=== PATIENT | male | born 1970 | race Hispanic/Latino ===

== ENCOUNTER 2018-01-02 17:16 | Emergency (ER) | payer MEDICAID ==
[2018-01-02] MEDS ORDERED: TETANUS/DIPHTHERIA TOXOID [ADULT] 0.5 ML VIAL IM ONE (18:08)
== END 2018-01-02 18:14 | disposition home or self-care (01) ==
LOC: EDH 17:16
DX: Z23 Encounter for immunization (principal); Z72.0 Tobacco use
CPT/HCPCS: 90471; 90714

== ENCOUNTER 2018-01-15 03:34 | Emergency (ER) | payer MEDICAID | END 2018-01-15 04:01 | disposition home or self-care (01) | LOC: EDH 03:34 | DX: Z04.1 Encounter for examination and observation following transport accident (principal) ==

== ENCOUNTER 2018-11-29 14:59 | Emergency (ER) | payer MEDICAID ==
[2018-11-29 15:24] LABS: BASOPHILS % (AUTO) 0.8 % (0.0-5.0); EOSINOPHILS % (AUTO) 4.6 % (0.0-8.0); HEMATOCRIT 43.7 % (42-54); LYMPHOCYTES % (AUTO) 33.3 % (21.0-51.0); MEAN CORPUSCULAR HEMOGLOBIN 33.2 pg (27.0-33.0); MEAN CORPUSCULAR HGB CONC 34.8 g/dL (32.0-36.0); MEAN CORPUSCULAR VOLUME 95.6 fL (79-99); MONOCYTES % (AUTO) 7.2 % (3.0-13.0); NEUTROPHILS % (AUTO) 54.1 % (40.0-77.0); PLATELET COUNT (AUTO) 316 K/uL (130-400); RED BLOOD CELL COUNT(AUTO) 4.57 MIL/uL (4.50-6.20); RED CELL DISTRIBUTION WIDTH 12.8 % (11.0-15.5); WHITE BLOOD COUNT (AUTO) 5.6 K/uL (4.8-10.8)
[2018-11-29] MEDS ORDERED: SODIUM CHLORIDE 0.9% 1000ML 1,000 ML IV ONE (15:30)
[2018-11-29] MEDS ORDERED: ASPIRIN 325 MG TABLET ONE (15:30)
[2018-11-29] MEDS ORDERED: NITROGLYCERIN 1GM/1 INCH PACKET TD ONE (15:31)
[2018-11-29 15:37] LABS: POTASSIUM 3.9 mmol/L (3.5-5.1)
[2018-11-29] MEDS ORDERED: PANTOPRAZOLE 40 MG/VIAL IVP ONE (15:39)
[2018-11-29 15:42] LABS: ALBUMIN 3.7 g/dL (3.5-5.0); BILIRUBIN,TOTAL 0.6 mg/dL (0.2-1.0); TOTAL PROTEIN, SERUM 7.2 g/dL (6.0-8.3)
[2018-11-29 15:51] LABS: CREATINE KINASE, TOTAL 73 U/L (21-232); MYOGLOBIN 45 ng/mL (10-92); TROPONIN I < 0.04 ng/mL (0.00-0.06)
[2018-11-29 16:54] LABS: APPEARANCE,URINE Clear (CLEAR); BILIRUBIN,URINE Negative (NEGATIVE); COLOR,URINE Yellow (YELLOW); GLUCOSE, URINE (UA) Negative (NEGATIVE); KETONES,URINE Negative (NEGATIVE); LEUKOCYTE ESTERASE ,URINE Negative (NEGATIVE); NITRATE,URINE Negative (NEGATIVE); OCCULT BLOOD,URINE Negative (NEGATIVE); PH,URINE 5.5 (5.0-8.0); PROTEIN,URINE Negative (NEGATIVE); UROBILINOGEN,URINE 0.2 mg/dL (0.2-1.0)
[2018-11-29 17:02] LABS: AMPHET/METH SCREEN,URINE NEGATIVE (NEGATIVE); BARBITURATE SCREEN, URINE NEGATIVE (NEGATIVE); BENZODIAZEPINES SCREEN,URINE NEGATIVE (NEGATIVE); CANNABINOID SCREEN,URINE NEGATIVE (NEGATIVE); COCAINE SCREEN,URINE POSITIVE (NEGATIVE); OPIATE SCREEN,URINE NEGATIVE (NEGATIVE); PHENCYCLIDINE SCREEN,URINE NEGATIVE (NEGATIVE)
== END 2018-11-29 19:03 | disposition home or self-care (01) ==
LOC: EDH 14:59
DX: R07.89 Other chest pain (principal); K21.9 Gastro-esophageal reflux disease without esophagitis; K29.70 Gastritis, unspecified, without bleeding; F14.90 Cocaine use, unspecified, uncomplicated; F41.9 Anxiety disorder, unspecified; Z79.899 Other long term (current) drug therapy; Z72.0 Tobacco use
CPT/HCPCS: 36415; 80053; 80305; 81003; 82550; 83874; 84484 ×2; 85025; 93005 ×2; 96361; 96374; 99285; C9113; J7030

== ENCOUNTER 2020-09-17 11:37 | Emergency (ER) | payer MEDICAID ==
[2020-09-17 12:01] LABS: BASOPHILS % (AUTO) 0.2 % (0.0-5.0); EOSINOPHILS % (AUTO) 0.1 % (0.0-8.0); HEMATOCRIT 39.2 % (42-54); LYMPHOCYTES % (AUTO) 13.3 % (21.0-51.0); MEAN CORPUSCULAR HEMOGLOBIN 32.6 pg (27.0-33.0); MEAN CORPUSCULAR HGB CONC 36.5 g/dL (32.0-36.0); MEAN CORPUSCULAR VOLUME 89.5 fL (79-99); MONOCYTES % (AUTO) 5.4 % (3.0-13.0); NEUTROPHILS % (AUTO) 80.5 % (40.0-77.0); PLATELET COUNT (AUTO) 373 K/uL (130-400); RED BLOOD CELL COUNT(AUTO) 4.38 MIL/uL (4.50-6.20)
[2020-09-17 12:16] LABS: ALBUMIN 4.4 g/dL (3.5-5.0); BILIRUBIN,TOTAL 0.6 mg/dL (0.2-1.0); POTASSIUM 4.4 mmol/L (3.5-5.1); TOTAL PROTEIN, SERUM 7.9 g/dL (6.0-8.3)
[2020-09-17] MEDS ORDERED: SODIUM CHLORIDE 0.9% 1000ML 1,000 ML IV ONE (13:18)
[2020-09-17] MEDS ORDERED: DiphenhydrAMINE HCL 50 MG/ML VIAL ONE (14:31)
[2020-09-17] MEDS ORDERED: CEFTRIAXONE SODIUM 1 GM ONE (15:08)
== END 2020-09-17 16:25 | disposition home or self-care (01) ==
LOC: EDH 11:37
DX: F41.1 Generalized anxiety disorder (principal); R07.89 Other chest pain; F14.10 Cocaine abuse, uncomplicated; F10.10 Alcohol abuse, uncomplicated; R11.2 Nausea with vomiting, unspecified; Z79.899 Other long term (current) drug therapy
CPT/HCPCS: 36415; 71045; 80053; 82550; 83880; 84484 ×2; 85025; 93005; 96361; 96374; 99285; J1200; J7030; J0696

== ENCOUNTER 2021-03-30 08:29 | Emergency (ER) | payer MEDICAID ==
[~2021-03-30] VITALS: Ht 162.6 cm; Wt 59.0 kg
[2021-03-30] MEDS ORDERED: SUCRALFATE 1 GM TABLET PO SCH (09:00)
[2021-03-30] MEDS ORDERED: 0.9%NACL 1000ML 1,000 ML IV SCH ×2 (09:00→11:00)
[2021-03-30] MEDS ORDERED: ASPIRIN 325MG TAB PO SCH (09:00)
[2021-03-30 09:20] LABS: BASOPHILS % (AUTO) 0.5 % (0.0-5.0); EOSINOPHILS % (AUTO) 0.5 % (0.0-8.0); HEMATOCRIT 40.6 % (42-54); LYMPHOCYTES % (AUTO) 18.6 % (21.0-51.0); MEAN CORPUSCULAR HEMOGLOBIN 31.6 pg (27.0-33.0); MEAN CORPUSCULAR HGB CONC 35.5 g/dL (32.0-36.0); MONOCYTES % (AUTO) 5.1 % (3.0-13.0); NEUTROPHILS % (AUTO) 75.1 % (40.0-77.0); PLATELET COUNT (AUTO) 379 K/uL (130-400); RED BLOOD CELL COUNT(AUTO) 4.56 MIL/uL (4.50-6.20); WHITE BLOOD COUNT (AUTO) 8.8 K/uL (4.8-10.8)
[2021-03-30 09:42] LABS: CREATININE 1.1 mg/dL (0.5-1.5); POTASSIUM 3.8 mmol/L (3.5-5.1)
[2021-03-30 09:47] LABS: ALBUMIN 4.4 g/dL (3.5-5.0); BILIRUBIN,TOTAL 0.5 mg/dL (0.2-1.0); MAGNESIUM 1.8 mg/dL (1.80-2.40); TOTAL PROTEIN, SERUM 8.2 g/dL (6.0-8.3)
[2021-03-30 10:00] LABS: AMPHET/METH SCREEN,URINE NEGATIVE (NEGATIVE); BARBITURATE SCREEN, URINE NEGATIVE (NEGATIVE); BENZODIAZEPINES SCREEN,URINE NEGATIVE (NEGATIVE); CANNABINOID SCREEN,URINE NEGATIVE (NEGATIVE); COCAINE SCREEN,URINE POSITIVE (NEGATIVE); OPIATE SCREEN,URINE NEGATIVE (NEGATIVE); PHENCYCLIDINE SCREEN,URINE NEGATIVE (NEGATIVE)
[2021-03-30] MEDS ORDERED: NITROGLYCERIN 1GM OINT 1 INCH/1GM TD SCH (10:00)
[2021-03-30] MEDS ORDERED: KETOROLAC 30MG VIAL (30MG/ML) IV SCH (10:00)
[2021-03-30] MEDS ORDERED: LORAZEPAM 2 MG/ML 1 ML VIAL IVP SCH (11:00)
[2021-03-30] MEDS ORDERED: FAMOTIDINE 20MG VIAL IV SCH (11:00)
[2021-03-30] MEDS ORDERED: FAMO-136 PO (12:55)
[2021-03-30 13:22] VITALS: BP 111/84
== END 2021-03-30 13:15 | disposition home or self-care (01) ==
LOC: EDH 08:29
DX: F41.9 Anxiety disorder, unspecified (principal); R07.89 Other chest pain; F14.10 Cocaine abuse, uncomplicated; I10 Essential (primary) hypertension; F17.200 Nicotine dependence, unspecified, uncomplicated
CPT/HCPCS: 36415; 71045; 80053; 80305; 82550; 83690; 83735; 83880; 84484 ×2; 85025; 93005 ×2; 96361; 96374; 96375; 99285; J1885; J2060; S0028; J3490

== ENCOUNTER 2022-08-30 10:36 | Emergency (ER) | payer MEDICAID ==
[~2022-08-30] VITALS: Ht 162.6 cm; Wt 63.5 kg
[2022-08-30 10:36] VITALS: BP 144/99
[~2022-08-30 10:36] MED LIST: FAMO-136 PO
[2022-08-30] MEDS ORDERED: AMOXICILLIN 500 MG CAPSULE PO ONE (11:30)
[2022-08-30] MEDS ORDERED: IBUPROFEN 600 MG TABLET PO ONE (11:30)
[2022-08-30] MEDS ORDERED: ACETAMINOPHEN 500 MG TABLET PO ONE (11:30)
[2022-08-30] MEDS ORDERED: AMOX500C2 PO (11:47)
== END 2022-08-30 11:59 | disposition home or self-care (01) ==
LOC: EDH 10:36
DX: K04.7 Periapical abscess without sinus (principal); I10 Essential (primary) hypertension; F17.200 Nicotine dependence, unspecified, uncomplicated; F41.9 Anxiety disorder, unspecified; F32.A Depression, unspecified; Z98.890 Other specified postprocedural states

== ENCOUNTER 2022-08-31 23:58 | Emergency (ER) | payer MEDICAID ==
[~2022-08-31] VITALS: Ht 162.6 cm; Wt 63.5 kg
[~2022-08-31 23:58] MED LIST changes: +AMOX500C2 PO
[2022-09-01 00:01] VITALS: BP 143/90
[2022-09-01] MEDS ORDERED: IBUP-2070 PO (01:17)
[2022-09-01] MEDS ORDERED: ACET1TAB97 PO (01:17)
[2022-09-01] MEDS ORDERED: HYDROCODONE/ACETAMINOPHEN 10/325 MG TAB PO ONE (01:30)
[2022-09-01] MEDS ORDERED: KETOROLAC 30MG VIAL (30MG/ML) IM ONE (01:30)
== END 2022-09-01 01:31 | disposition home or self-care (01) ==
LOC: EDH 23:58
DX: K04.7 Periapical abscess without sinus (principal); I10 Essential (primary) hypertension; F32.A Depression, unspecified; F41.9 Anxiety disorder, unspecified; F17.200 Nicotine dependence, unspecified, uncomplicated
CPT/HCPCS: 99283; 96372; J1885

== ENCOUNTER → 2022-09-28 | Emergency (ER) | payer MEDICAID ==
[~2022-09-28] VITALS: Ht 162.6 cm; Wt 63.5 kg
[~2022-09-28] MED LIST changes: +ACET1TAB97 PO; +IBUP-2070 PO
[2022-09-28 13:11] VITALS: BP 126/101
== END | disposition left against medical advice (07) ==
LOC: EDH 13:10
DX: R22.0 Localized swelling, mass and lump, head (principal); K08.89 Other specified disorders of teeth and supporting structures; Z53.21 Procedure and treatment not carried out due to patient leaving prior to being seen by health care provider

== ENCOUNTER → 2024-02-02 | Outpatient (CLI) | payer MEDICAID ==
[2024-02-02 16:22] LABS: CREATININE 1.2 mg/dL (0.5-1.3)
== END | disposition home or self-care (01) ==
LOC: LAB 13:10
PROVIDERS: ATTEND Student in an Organized Health Care Education/Training Program
DX: R07.9 Chest pain, unspecified (principal)
CPT/HCPCS: 36415; 80048

== ENCOUNTER → 2024-02-05 | Outpatient (CLI) | payer MEDICAID | END | disposition home or self-care (01) | LOC: SHCH 13:45 | PROVIDERS: ATTEND Student in an Organized Health Care Education/Training Program | DX: R07.9 Chest pain, unspecified (principal); E78.5 Hyperlipidemia, unspecified | CPT/HCPCS: 93306 ==

== ENCOUNTER → 2024-02-09 | Outpatient (CLI) | payer MEDICAID ==
[~2024-02-09] MED LIST changes: +IOHEXOL 350 MG/ML 100ML INFUS..BTL IV ONE; +metoPROLOL tartRATE 1 MG/ML 5ML VIAL IV ONE
== END | disposition home or self-care (01) ==
LOC: RAH 09:20
PROVIDERS: ATTEND Student in an Organized Health Care Education/Training Program
DX: R07.9 Chest pain, unspecified (principal)
CPT/HCPCS: 75574; J3490; Q9967

== ENCOUNTER → 2024-03-16 | Outpatient (CLI) | payer MEDICAID ==
[~2024-03-16] MED LIST changes: -IOHEXOL 350 MG/ML 100ML INFUS..BTL IV ONE; -metoPROLOL tartRATE 1 MG/ML 5ML VIAL IV ONE
[2024-03-16 12:33] LABS: ALBUMIN 3.9 g/dL (3.5-5.0); BILIRUBIN,TOTAL 0.5 mg/dL (0.2-1.0); CREATININE 1.1 mg/dL (0.5-1.3); POTASSIUM 4.2 mmol/L (3.5-5.1); TOTAL PROTEIN, SERUM 7.1 g/dL (6.0-8.3)
== END | disposition home or self-care (01) ==
LOC: LAB 08:41
PROVIDERS: ATTEND Student in an Organized Health Care Education/Training Program
DX: E78.5 Hyperlipidemia, unspecified (principal); R07.9 Chest pain, unspecified
CPT/HCPCS: 36415; 80053; 80061; 83036